=== PATIENT | male | born 1995 | race Caucasian/White ===

== ENCOUNTER 2019-04-29 09:59 | Day surgery (SDC) | payer OTHER ==
[~2019-04-29] VITALS: Ht 177.8 cm; Wt 124.6 kg
[~2019-04-29 09:59] MED LIST: LIDOCAINE W/EPINEPHRINE 1% 20ML VIAL As Ordered ONE; LR 1,000 ML IV ONE; METHYLENE BLUE 0.5% (5MG/ML) 10 ML AMP (PROVAYBLUE)(Q9968 PER 1MG) As Ordered ONE; OXYMETAZOLINE NASAL SPRAY (AFRIN) As Ordered ONE
[2019-04-29] MEDS ORDERED: ROCURONIUM BROMIDE 50 MG/5 ML VIAL As Ordered ONE (11:27)
[2019-04-29] MEDS ORDERED: LIDOCAINE 2% INJ 100 MG/5 ML SDV (FOR ANES.) As Ordered ONE (11:27)
[2019-04-29] MEDS ORDERED: MIDAZOLAM INJ 2 MG/2 ML VIAL (J2250) As Ordered ONE (11:27)
[2019-04-29] MEDS ORDERED: fentaNYL 250 MCG/5 ML INJECTION (J3010) As Ordered ONE (11:27)
[2019-04-29] MEDS ORDERED: propofoL 200 MG/20 ML VIAL As Ordered ONE (11:27)
[2019-04-29] MEDS ORDERED: dexameTHASONE 4 MG/ML 1ML VIAL (J1100) As Ordered ONE (12:10)
[2019-04-29] MEDS ORDERED: LIDOCAINE 2% W/EPIN INJ 20ML **PRES FREE As Ordered ONE (12:14)
[2019-04-29] MEDS ORDERED: METOCLOPRAMIDE INJ 10MG/2ML VIAL (J2765) As Ordered ONE (12:55)
[2019-04-29] MEDS ORDERED: ONDANSETRON 4MG/2ML VIAL (J2405) As Ordered ONE (12:55)
[2019-04-29] MEDS ORDERED: KETOROLAC 60 MG/2 ML VIAL (J1885) As Ordered ONE (12:55)
[2019-04-29] MEDS ORDERED: DESFLURANE 240 ML INHALANT As Ordered ONE (13:00)
[2019-04-29] MEDS ORDERED: SUGAMMADEX SODIUM 500 MG/5 ML VIAL (BRIDION) As Ordered ONE (13:07)
[2019-04-29] MEDS ORDERED: PERCOCET 5MG/325MG TAB PO PRN (14:00)
[2019-04-29] MEDS ORDERED: ONDANSETRON 4MG/2ML VIAL (J2405) IV PRN (14:00)
[2019-04-29] MEDS: fentaNYL 100 MCG/2 ML INJECTION (J3010) IV PRN ×4 (14:00→14:15)
[2019-04-29] MEDS ORDERED: LR 1,000 ML IV SCH (14:00)
[2019-04-29] MEDS ORDERED: KETOROLAC 30 MG/ML VIAL (J1885) IV PRN (14:00)
[2019-04-29] MEDS: PERCOCET 5MG/325MG TAB PO PRN ×2 (14:00→14:30)
[2019-04-29] MEDS ORDERED: IBUPROFEN 800 MG TAB PO PRN (14:00)
[2019-04-29] MEDS ORDERED: HALOPERIDOL 5 MG/ML VIAL (J1630) IV ONE (15:00)
[2019-04-29 15:45] VITALS: BP 134/82
== END 2019-04-29 16:09 | disposition home or self-care (01) ==
LOC: M SDC 09:59
PROVIDERS: ATTEND Specialist
DX: J34.2 Deviated nasal septum (principal); Z87.891 Personal history of nicotine dependence
CPT/HCPCS: 30140; 30520; 88300; J1100; J1885; J2250; J2405; J2765; J3010; Q9968

== ENCOUNTER → 2021-11-16 | Outpatient (CLI) | payer OTHER | LOC: M RAD 11:37 | PROVIDERS: ATTEND Nurse Practitioner Family | DX: M89.9 Disorder of bone, unspecified (principal) | CPT/HCPCS: 78306; A9503 ==

== ENCOUNTER → 2022-04-13 | Outpatient (REF) | LOC: M PLAIMG 09:48 | PROVIDERS: ATTEND Internal Medicine | DX: Z00.00 Encounter for general adult medical examination without abnormal findings (principal) ==

== ENCOUNTER 2022-08-17 10:55 | Emergency (ER) | payer OTHER ==
[~2022-08-17] VITALS: Ht 177.8 cm; Wt 115.8 kg
[2022-08-17] MEDS ORDERED: KETOROLAC 60MG 2ML VIAL IM ONE (12:45)
[2022-08-17] MEDS ORDERED: OXAZ15CA4 PO (13:13)
[2022-08-17] MEDS ORDERED: IBUP80TA PO (13:16)
[2022-08-17 13:30] VITALS: BP 121/66
== END 2022-08-17 13:31 | disposition home or self-care (01) ==
LOC: M ED 10:55
DX: S43.422A Sprain of left rotator cuff capsule, initial encounter (principal); X50.0XXA Overexertion from strenuous movement or load, initial encounter; Y92.89 Other specified places as the place of occurrence of the external cause; Y93.B3 Activity, free weights; Y99.8 Other external cause status
CPT/HCPCS: 73030; 96372; 99284; J1885